=== PATIENT | female | born 1950 | race Caucasian/White ===

== ENCOUNTER → 2020-07-28 | Outpatient (CLI) | payer OTHER ==
[~2020-07-28] MED LIST: FERROUS SULFAT325 M2 PO; IPRAT-ALBUT 0.5-3 ML INH; LASIX20 MG PO; LOPRESSOR 25 MG25 MG PO; LOVASTATIN10 MG PO; MELOXICAM15 MG PO; PAXIL30 MG PO; PROAIR DIGIHAL90 MCG INH; TRAZODONE HCL100 MG PO; TRELEGY ELLIPT1 EACH
[2020-07-28 17:35] LABS: HEMOGLOBIN 15.1 gm/dl (12.3-15.3); RED BLOOD COUNT 5.45 M/UL (4.00-5.10); WHITE BLOOD COUNT 8.1 K/UL (4.5-11.0)
[2020-07-28 18:00] LABS: BUN/CREATININE RATIO 12 (0-10)
== END ==
LOC: LAB 16:21
PROVIDERS: Internal Medicine Interventional Cardiology
DX: I27.20 Pulmonary hypertension, unspecified (principal); R93.1 Abnormal findings on diagnostic imaging of heart and coronary circulation; R94.39 Abnormal result of other cardiovascular function study; R07.9 Chest pain, unspecified; E78.00 Pure hypercholesterolemia, unspecified; R94.31 Abnormal electrocardiogram [ECG] [EKG]; I45.10 Unspecified right bundle-branch block; I11.9 Hypertensive heart disease without heart failure
CPT/HCPCS: 36415; 80048; 85025; 85610; 85730; 93005

== ENCOUNTER → 2020-07-30 | Outpatient (CLI) | payer OTHER | LOC: CATH 10:00 | DX: R94.39 Abnormal result of other cardiovascular function study (principal); I27.20 Pulmonary hypertension, unspecified; I20.8 Other forms of angina pectoris; I10 Essential (primary) hypertension; J44.9 Chronic obstructive pulmonary disease, unspecified; Z87.891 Personal history of nicotine dependence; Z79.899 Other long term (current) drug therapy | CPT/HCPCS: 99152; 99153; C1751; C1769; J1644; J1940; J2250; J3010; J7030; Q9967 ==

== ENCOUNTER → 2020-08-04 | Outpatient (CLI) | payer OTHER | LOC: RT 16:35 | DX: R09.02 Hypoxemia (principal) | CPT/HCPCS: 36600; 82803 ==

== ENCOUNTER → 2020-08-04 | Outpatient (CLI) | payer OTHER | LOC: EXRD 15:17 | DX: R09.02 Hypoxemia (principal); R94.2 Abnormal results of pulmonary function studies; F17.210 Nicotine dependence, cigarettes, uncomplicated; R91.8 Other nonspecific abnormal finding of lung field | CPT/HCPCS: 71046; 94010; 94729 ==

== ENCOUNTER → 2020-10-08 | Day surgery (SDC) | payer OTHER | END | disposition home or self-care (01) | LOC: CATH 08:30 | DX: I27.20 Pulmonary hypertension, unspecified (principal); J44.9 Chronic obstructive pulmonary disease, unspecified; I11.9 Hypertensive heart disease without heart failure; I34.0 Nonrheumatic mitral (valve) insufficiency; D64.9 Anemia, unspecified; E78.00 Pure hypercholesterolemia, unspecified; M19.90 Unspecified osteoarthritis, unspecified site; Z87.891 Personal history of nicotine dependence; Z72.89 Other problems related to lifestyle; Z20.822 Contact with and (suspected) exposure to COVID-19; Z79.899 Other long term (current) drug therapy | CPT/HCPCS: 82962; 87635; 93005; 93312; 93320; J2250; J3010; J7030 ==